=== PATIENT | female | born 1995 | race Caucasian/White ===

== ENCOUNTER 2022-02-18 07:42 | Emergency (ER) | payer OTHER, SELFPAY ==
--- NOTE | ~2022-02-18 | US_ITS ---
US abdomen limited DATE: 02/18/2022 09:29 INDICATION: Abdominal pain for 3 weeks, worse when eating TECHNIQUE: Real-time imaging of liver, pancreas, gallbladder COMPARISON: None FINDINGS: No pancreatic space-occupying mass lesion or ductal dilatation. Normal hepatopedal portal venous flow direction. There is a 1.3 x 2.3 x 1.5 cm hyperechoic lesion of the anterior aspect of the lateral segment of the left hepatic lobe; differential diagnosis includes focal fatty infiltration versus hemangioma. Consi vinny CT or MRI examination for further evaluation. No gallstones or gallbladder wall thickening. Negative sonographic Gagnon's sign. The common bile duct measures 2.2 mm, normal. IMPRESSION: 1.3 x 2.3 x 1.5 cm hyperechoic lesion of the anterior aspect of lateral segment left hepa tic lobe; differential diagnosis includes hemangioma or focal fatty infiltration. Consider CT or MR l iver examination Reviewed, dictated and finalized at [facility] Reviewed, dictated and finalized at [facility] IMPRESSION: 1.3 x 2.3 x 1.5 cm hyperechoic lesion of the anterior aspect of lat eral segment left hepatic lobe; differential diagnosis includes hemangioma or f ocal fatty infiltration. Consider CT or MR liver examination
--- NOTE | ~2022-02-18 | CT_ITS ---
EXAMINATION: CT abdomen pelvis w con DATE: 02/18/2022 10:04 INDICATION: Upper abdominal pain. TECHNIQUE: Computed tomography (CT) of the abdomen and pelvis was performed with 100 mL Omnipaque 350 intravenous contrast. Automated exposure control and iterative reconstruction technique were employe d. The dose-length product was 273.32 mGy-cm. COMPARISON: Abdomen ultrasound 02/18/2022 FINDINGS: The visualized portions of the lung bases demonstrate mild atelectasis. No pleural effusion . The heart size is normal. No pericardial effusion. The liver demonstrates focal steatosis adjacent to the falciform ligament. The gallbladder, spleen, pancreas, adrenal glands, and kidneys are normal. The appendix is normal. There is wall thickening of the distal 20 cm of small bowel. There is physio logic fluid in the pelvis. There are no pathologically enlarged lymph nodes. The bones are unremarkab le. IMPRESSION: 1. Terminal ileitis, consistent with infection versus Crohn disease. Reviewed, dictated and finalized at [facility]
[2022-02-18 07:45] VITALS: BP 136/72; PULSE 99; RESP 15; TEMP 36.8; O2SAT 100
--- NOTE | 2022-02-18 08:10 | ED.ABDPAIN ---
HPI - Abdominal Pain General Chief Complaint: Abdominal Pain Stated Complaint: abd pain Time Seen by Provider: 02/18/22 07:54 Source: RN notes reviewed History of Present Illness HPI narrative: Patient presents emergency department from home for abdominal pain. Patient states for the past 3 weeks she has been having intermittent abdominal pain in the right upper quadrant. The pain is described as sharp and stabbing and radiates around to the right side of her back. States it is worse when she eats states that has been associate with nausea and vomiting as well as a temperature up to 101 degrees yesterday she states that the pain is better at this time but is still aching she states she has been seen by her PCP and she is scheduled an outpatient ultrasound of her gallbladder but has not had it yet. She denies any chest pain shortness of breath diarrhea or any other symptoms states she has not taken any pain medication today Related Data Allergies Allergy/AdvReac Type Severity Reaction Status Date / Time bacitracin Allergy Unknown Verified 02/18/22 08:17 Review of Systems Review of Systems: Gen.: Denies fevers or chills ENT: Denies congestion Respiratory: Denies shortness of breath or cough CV: Denies chest pain or palpitations GI: See HPI denies burning, urgency, frequency or hematuria Musculoskeletal: Denies back pain or muscle pain Neuro: Denies numbness, tingling, weakness or focal weakness Skin: Denies rash Except as documented, all other systems reviewed and negative [facility] Past Medical History Medical History (Updated 02/18/22 @ 10:31 by Howard Samuel DO) Patient denies significant medical history Social History Social History (Updated 02/18/22 @ 08:11 by Howard Samuel DO) Smoking status: Never smoker Exam Narrative: APPEARANCE: No acute distress, nontoxic, resting in bed HEENT: Normocephalic, atraumatic, OMM RESPIRATORY: No respiratory distress, clear to auscultation bilaterally with no rhonchi wheezing or rales CARDIOVASCULAR: RRR s murmur ABDOMINAL: Soft nondistended tender palpation right upper quadrant left upper quadrant, left lower quadrant right lower quadrant no rebound or guarding MUSCULOSKELETAl: Moves all extremities. No clubbing, cyanosis or edema. NEURO: Awake and alert. Following commands, speech normal, no focal deficits SKIN:: Warm, dry. Normal Color PSYCHIATRIC: Normal affect/mood Course Course Emergency Course: Discussed with Dr. Conte area seen on ultrasound is fatty liver Discussed with Dr. Mejia her GI agrees with plan for discharge follow-up as an outpatient agrees with plan to start patient on Augmentin Discussed with PCP Dr. Tracy Bah agrees with plan for discharge and follow-up as an Discussed with patient results of workup and diagnosis. Discussed need for follow-up with primary care, proper use of medication, and reasons to return to the emergency department. Patient understands and agrees to current treatment plan Vital Signs Vital signs: Vital Signs Temperature 98.3 F 02/18/22 07:45 Pulse Rate 99 02/18/22 07:45 Respiratory Rate 15 02/18/22 07:45 Blood Pressure 136/72 02/18/22 07:45 Pulse Oximetry 100 02/18/22 07:45 Oxygen Delivery Room Air 02/18/22 07:45 Temperature 98.3 F 02/18/22 09:07 Pulse Rate 90 02/18/22 09:26 Respiratory Rate 16 02/18/22 09:26 Blood Pressure 107/68 02/18/22 09:26 Pulse Oximetry 100 02/18/22 09:26 Oxygen Delivery Room Air 02/18/22 07:45 MDM - Abdominal Pain Lab Data Result diagrams: 02/18/22 08:11 02/18/22 08:11 Labs: Lab Results 02/18/22 02/18/22 02/18/22 Range/Units 08:11 08:11 08:37 WBC 7.4 (4.5-10.0) K/mm3 RBC 4.37 (4.2-5.4) M/mm3 Hgb 11.0 L (12.0-15.0) g/dL Hct 35.1 L (37.0-47.0) % MCV 80.3 (80-100) fl MCH 25.2 L (26-34) pg MCHC 31.3 L (32-36) g/dl RDW 12.7 (11.5-14.5) % Plt Count 433 H
[2022-02-18 08:22] LABS: Basophils Percent Auto 0.4 % (0.2-1.2); Eosinophils Absolute Auto 0.2 K/mm3 (0-0.3); Eosinophils Percent Auto 3.1 % (0-4.4); Hematocrit 35.1 % (37.0-47.0); Immature Granulocyte Absolute 0.02 K/mm3 (0.00-0.031); Immature Granulocyte Percent A 0.3 % (0-0.5); Lymphocytes Absolute Auto 1.16 K/mm3 (0.9-3.2); Lymphocytes Percent Auto 15.6 % (18.3-44.2); Mean Corpuscular HGB Conc 31.3 g/dl (32-36); Mean Corpuscular Hemoglobin 25.2 pg (26-34); Mean Corpuscular Volume 80.3 fl (80-100); Mean Platelet Volume 8.5 fl (7.4-10.4); Monocytes Absolute Auto 0.8 K/mm3 (0.1-0.6); Neutrophils Absolute Auto 5.2 K/mm3 (1.3-6.7); Neutrophils Percent Auto 69.6 % (45.5-73.1); Platelet Count Result 433 k/mm3 (150-375); Red Blood Count 4.37 M/mm3 (4.2-5.4); Red Cell Distribution Width 12.7 % (11.5-14.5); White Blood Count 7.4 K/mm3 (4.5-10.0)
[2022-02-18] MEDS: KETOROLAC 30 MG/ML VIAL (*BKC) IV PUSH (08:37)
[2022-02-18] MEDS: SODIUM CHLORIDE 0.9% IV 1,000 ML 999 ML IV CONT (08:38)
[2022-02-18 08:39] LABS: Alanine Aminotransferase 12 U/L (6-35); Albumin Level 3.9 g/dL (3.5-5.1); Alkaline Phosphatase 72 U/L (38-126); Anion Gap 14 mmol/L (8-16); Aspartate Amino Transferase 16 U/L (14-36); Bilirubin,Total 0.4 mg/dL (0.2-1.3); Blood Urea Nitrogen 13 mg/dL (7-17); Calcium 8.7 mg/dL (8.4-10.2); Carbon Dioxide 24 mmol/L (22-30); Chloride 102 mmol/L (98-107); Estimated CRCL calculation 77 ml/min; Estimated Glomerular Filt Rate > 60; Glucose 92 mg/dL (65-110); Lipase 65 U/L (23-300); Potassium 3.6 mmol/L (3.4-5.0); Sodium 140 mmol/L (137-145)
[2022-02-18 08:47] LABS: Appearance Urine Clear (Clear); Bilirubin Urine 1+ (Negative); Blood Urine Negative (Negative); Color Urine Yellow (Yellow); Glucose Urine UA Negative (Negative); Ketones Urine Trace mg/dL (Negative); Leukocyte Esterase Ur Negative LEU/UL (Negative); Nitrate Urine Negative (Negative); Protein Urine Negative (Negative); Specific Grav Ur 1.025 (1.001-1.035); Urobilinogen Urine 0.2 mg/dL (<2.0); pH Urine 5.5 (5.0-9.0)
[2022-02-18 08:55] LABS: Bacteria Urine Trace /hpf; Mucus Urine Few /lpf; RBC Urine 0-2 /hpf (0-2); Squamous Epithelial Cell Urine Occasional /hpf (Few); WBC Urine 0-3 /hpf
--- NOTE | 2022-02-18 09:02 | PC.NURSE ---
Patient to ultrasound
[2022-02-18 09:07] VITALS: TEMP 36.8
[2022-02-18 09:08] LABS: Add Urine Microscopic? YES
[2022-02-18 09:26] VITALS: BP 107/68; PULSE 90; RESP 16; O2SAT 100
[2022-02-18] MEDS: AMOXICILLIN/CLAVULANATE K 875-125 MG TAB 1 TABLET PO (11:01)
[2022-02-18 11:17] VITALS: BP 106/66; PULSE 91; RESP 16; O2SAT 100
== END 2022-02-18 11:19 | disposition home or self-care (01) ==
PROVIDERS: Emergency Provider Emergency Medicine; PCP Physician Assistant
DX: K50.00 Crohn's disease of small intestine without complications (principal); K76.9 Liver disease, unspecified
CPT/HCPCS: 36415; 74177; 76705; 80053; 81001; 81025; 83690; 85025; 96361; 96374; 99284; A9270; J1885; J7030; Q9967